=== PATIENT | male | born 1985 ===

== ENCOUNTER 2021-11-12 13:31 | Emergency (ER) | payer SELFPAY ==
[2021-11-12] MEDS ORDERED: LIDOCAINE (1%) 10 MG/1 ML VIAL 20 ML MDV INFILTRATI ONE (20:13)
[2021-11-12 21:47] VITALS: BP 124/78
--- NOTE | 2021-11-12 22:02 | Emergency Department Report ---
ED Laceration HPI - HPI Chief Complaint: Laceration/Recheck/Suture Stated Complaint: CUT FINGER Time Seen by Provider: 11/12/21 21:04 Occurred When: Today Location: Upper Extremity Severity: moderate Tetanus Status: Up to Date Laceration Symptoms: Yes Pain, No Foreign Body Sensation, No Numbness, No Weakness Other History: He was helping his brother when he accidentally cut the pad of his right index finger with a sharp object resulting in a laceration and bleeding presents emergency department seeking closure of the wound. Injury occurred few hours prior to arrival ED Review of Systems ROS: Stated complaint: CUT FINGER Other details as noted in HPI Comment: All other systems reviewed and negative ED Past Medical Hx - Social History Smoking Status: Never Smoker Substance Use Type: None - Medications Home Medications: Home Medications Medication Instructions Recorded Confirmed Last Taken Type cephALEXin [Keflex] 500 mg PO Q8HR #21 cap 11/12/21 Unknown Rx Laceration Physical Exam - Exam General: Vital signs noted. No distress. Alert and acting appropriately. Wound Length (cm): 3 Laceration Location: Upper Extremity Full Body Front + Back: 1 - Laceration to the pad of the right index finger Laceration Exam: Yes Normal Distal CMS, No Foreign Body, No Exposed Tendon, Vessel, or Nerve, No Tendon Injury ED Course Vital Signs 11/12/21 11/12/21 14:12 20:41 Temperature 98.7 F 98.0 F Pulse Rate 83 73 Respiratory 18 20 Rate Blood Pressure 163/101 119/76 [Right] O2 Sat by Pulse 100 99 Oximetry - Laceration /Wound Repair Right Finger Wound Location: upper extremity Wound Length (cm): 3 Wound's Depth, Shape: linear Wound Explored: clean Betadine Prep?: Yes Anesthesia: 1% Lidocaine Wound Debrided: moderate Wound Repaired With: sutures Suture Size/Type: 3:0 Number of Sutures: 4 Layer Closure?: No Sterile Dressing Applied?: No Critical care attestation.: If time is entered above; I have spent that time in minutes in the direct care of this critically ill patient, excluding procedure time. ED Disposition Clinical Impression: Laceration of right index finger Disposition: HOME / SELF CARE / HOMELESS Is pt being admited?: No Does the pt Need Aspirin: No Condition: Stable Instructions: Laceration Care, Adult, Sutured Wound Care, Sutures, Jose Angel, or Adhesive Wound Closure Prescriptions: cephALEXin [Keflex] 500 mg PO Q8HR #21 cap Referrals: [facility] [Provider Group] - 3-5 Days
== END 2021-11-12 21:46 | disposition home or self-care (01) ==
LOC: ED 13:31
DX: S61.210A Laceration without foreign body of right index finger without damage to nail, initial encounter (principal); W26.8XXA Contact with other sharp object(s), not elsewhere classified, initial encounter; Y93.89 Activity, other specified; Y92.89 Other specified places as the place of occurrence of the external cause; Y99.8 Other external cause status
CPT/HCPCS: 99282